=== PATIENT | female | born 1970 | race Caucasian/White ===

== ENCOUNTER 2020-03-24 04:50 | Emergency (ER) | payer SELFPAY ==
[~2020-03-24] VITALS: Ht 157.5 cm; Wt 74.4 kg
[~2020-03-24 04:50] MED LIST: IBUP-1174 PO
[2020-03-24 08:30] VITALS: BP 132/86
== END 2020-03-24 08:52 | disposition home or self-care (01) ==
LOC: ER 04:50
DX: S50.02XA Contusion of left elbow, initial encounter (principal); S50.312A Abrasion of left elbow, initial encounter; F17.210 Nicotine dependence, cigarettes, uncomplicated; Y08.89XA Assault by other specified means, initial encounter; Y93.89 Activity, other specified; Y92.89 Other specified places as the place of occurrence of the external cause; Y99.8 Other external cause status
CPT/HCPCS: 73080